=== PATIENT | female | born 1960 | race Caucasian/White ===

== ENCOUNTER 2023-11-19 20:23 | Emergency (ER) | payer MEDICARE, SELFPAY ==
[2023-11-19 20:23] VITALS: BMI 46.3
[2023-11-19 20:26] VITALS: BP 103/58
[2023-11-19 20:27] VITALS: BP 103/58
[2023-11-19 20:43] VITALS: BP 116/41
--- NOTE | 2023-11-19 20:46 | ED.GENMED ---
History of Present Illness
General
Chief Complaint: Abnormal Lab Value
Time Seen by Provider: 11/19/23 20:41
Travel History
Have you had any contact with someone who has COVID-19?: No
Do you have any symptoms of coronavirus? Fever > 100 degrees, chills, cough, shortness of breath, sore throat, loss of taste or smell, muscle aches, or headache?: No
History of Present Illness
History of Present Illness:
HPI: Patient presents from [facility] due to abnormal blood work�I reviewed the blood work that showed a RBC that was low and a hemoglobin of 8.7. She is chronically on oxygen. She missed the last several chemo sessions in [place] for a variety
of reasons.
EXAM:
GENERAL: Appears generally weak and debilitated, elevated BMI
HEENT: Moist oral mucosa
CARDIOVASCULAR: No murmurs, normal heart rate, regular rhythm, No chest wall tenderness
PULMONARY: No respiratory distress, breath sounds are clear and equal
ABDOMEN: Soft with no peritoneal signs, no tenderness
NEUROLOGIC: Excellent strength all extremities, no coordination deficits
PSYCHIATRIC: Appropriate mental status, normal insight and judgement
EXTREMITIES: Nontender, no edema, moves all extremities equally
SKIN: Appears somewhat pale
TIME OF INITIAL ENCOUNTER: 8:45 PM
NUMBER AND COMPLEXITY OF PROBLEMS ADDRESSED AT THE ENCOUNTER
� Chronic conditions affecting care: Lung cancer
� Acute Exacerbation and/or Progression of Chronic Illness: This is an acute problem
� Differential Diagnosis includes: Anemia of chronic disease, iron deficiency anemia, blood loss anemia
AMOUNT AND/OR COMPLEXITY OF DATA TO BE REVIEWED AND ANALYZED
� I performed an independent evaluation of and my interpretation is:
EKG:
CT:
X-rays:
Laboratory Studies: Hemoglobin 8.6, white count normal
Other:
� Review of other/old records: I spoke to the on-call oncologist at [facility]. The patient had a hemoglobin of 7.8 on November 13 and a hemoglobin of 7.4 on November 06.
� Clinical information was obtained by an independent historian: I called [facility] to get more information�they have no records/no old lab work. I briefly spoke to the son when he called.
� Prescriptions/Medications Considered but not given:
� Further testing considered but not performed:
RISK OF COMPLICATIONS AND/OR MORBIDITY OR MORTALITY OF PATIENT MANAGEMENT
� Social determinants of health affecting care: The oncology fellow said that she would send a message to her primary oncologist regarding the issues she has been having regarding transportation.
� Discussion with other providers: At 8:50 PM, we are contacting [facility] oncology
� Escalation of care including admission/observation vs risk of discharge considered: The patient has no complaints but was found to be anemic as an outpatient. Although she has a borderline temperature elevation here, she
reports no chills or unwell feeling. She has no particular symptoms. Son informed us that he is not happy with the care at [facility] as they could not get her to her facility. However, there is no clear indication for her to be admitted at
[facility] especially when she has no care provided here in the past and no other old records.
Phy Exam
Physical Exam
Physical Exam:
See HPI
Course
Orders/Labs/Results
Orders:
Orders
11/19/23 20:46
0.9% Sodium Chloride 500 ml [Nss] 500 ml IV BOLUS
11/19/23 20:47
Acetaminophen [Tylenol] 1,000 mg PO NOW STA
11/19/23 21:03
Type+Screen Urgent
Basic Metabolic Panel Urgent
Complete Blood Count/With Diff Urgent
Ferritin Urgent
Iron Urgent
Total Iron Binding Urgent
Abnormal Lab Results
11/19/23
21:03
RBC 2.98 L 10^6/uL
(4.20-5.40)
Hgb 8.6 L g/dL
(12.0-16.0)
Hct 26.7 L %
(37.0-47.0)
MCHC 32.2 L g/dL
(33.0-37.0)
RDW 21.0 H %
(11.5-14.5)
MPV 11.9 H fL
(7.4-10.4)
Absolute Lymphs (auto) 0.9 L 10^3/uL
(1.2-3.4)
Lymphocytes % 15.7 L %
(20.5-51.1)
Monocytes % 10.1 H %
(1.7-9.3)
11/19/23 21:03
Vital Signs
Initial and Last Documented VS:
Initial Vital Signs
BP
103/58
11/19/23 20:26
Last Documented Vital Signs
Temp Pulse Resp BP Pulse Ox
100.2 F 74 19 116/41 92
11/19/23 20:27 11/19/23 20:43 11/19/23 20:43 11/19/23 20:43 11/19/23 20:43
*Critical Care Note
Total Time (30-74mins, 75-104mins- exclusive of procedures): Not Applicable
ED Attending Note
-
Portions of this chart may have been created with voice recognition software.� Occasional wrong word or��sound alike� substitutions may have occurred due to the inherent limitations of voice recognition software.
Discharge Plan
Departure
Patient Disposition: Home (Routine Discharge)
Date of Disposition: 11/19/23
Time of Disposition: 21:14
Patient with high blood pressure during this ER visit?: Yes
Discharge Problem:
Anemia
Instructions: Anemia of inflammation (anemia of chronic disease)
Activity Restrictions/Additional Instructions:
I spoke to one of the oncology fellows at [facility]. She tells me that the hemoglobin on November 13 was 7.8. As an outpatient it was 8.7 through [facility] and today at [facility] is 8.6. The doctor that I Dr. Restrepo said they will send a message to
your own oncologist regarding the transportation issues that you have been having.
Interventions
Interventions:
*Risk Screen - Suicide Last Done: 11/19/23 20:27
*General Assessment Last Done: 11/19/23 20:27
*Neglect/Abuse Screening Last Done: 11/19/23 20:27
ED- Fall Risk Assessment Last Done: 11/19/23 20:27
*ED COVID-19 Vaccine History Last Done: 11/19/23 20:27
Discharge Date and Time
Print Language: MAORI
[2023-11-19 21:00] VITALS: BP 93/48
[2023-11-19 21:10] LABS: % Basophils 0.2 % (0-2); % Eosinophils 3.6 % (0-6); % Immature Granulocytes 0.5 % (0-0.5); % Lymphocytes 15.7 % (20.5-51.1); % Monocytes 10.1 % (1.7-9.3); % Neutrophils 69.9 % (42.2-75.2); Absolute Eosinophils 0.2 10^3/uL (0-0.7); Absolute Lymphocytes 0.9 10^3/uL (1.2-3.4); Absolute Monocytes 0.6 10^3/uL (0.1-0.6); Absolute Neutrophils 4.1 10^3/uL (1.4-6.5); Hematocrit 26.7 % (37.0-47.0); Hemoglobin 8.6 g/dL (12.0-16.0); Mean Corp Hgb Conc. 32.2 g/dL (33.0-37.0); Mean Corpuscular Hgb 28.9 pg (27.0-31.0); Mean Corpuscular Volume 89.6 fL (81.0-99.0); Mean Platelet Volume 11.9 fL (7.4-10.4); Nucleated Red Blood Cells % 0 %; Platelet Count 162 10^3/uL (130-400); Red Blood Cell Count 2.98 10^6/uL (4.20-5.40); White Blood Cell Count 5.9 10^3/uL (4.8-10.8)
[2023-11-19] MEDS: NSS 500 IV (21:20)
[2023-11-19] MEDS: TYLENOL 1000 MG PO (21:21)
[2023-11-19 21:40] LABS: Blood Urea Nitrogen 19 mg/dl (7-17); Calcium 9.4 mg/dl (8.4-10.2); Carbon Dioxide 30 mmol/L (22-30); Chloride 97 mmol/L (98-107); Estimated Creatinine Clearance 83 ml/min; Glucose 101 mg/dl (70-99); Potassium 3.8 mmol/L (3.5-5.1); Sodium 134 mmol/L (135-145); eGFR > 60.00
[2023-11-19 21:43] LABS: Iron < 20 ug/dl (37-170)
[2023-11-19 21:49] LABS: Percent Saturation 7.90513 % (20-50); Total Iron Binding Capacity 253 ug/dl (265-497)
[2023-11-19 22:41] VITALS: BP 98/59
[2023-11-19 23:00] VITALS: BP 109/62
[2023-11-20 02:40] VITALS: BP 101/65
== END 2023-11-20 02:45 | disposition home or self-care (01) ==
LOC: EMR 20:23
PROVIDERS: EMERGENCY PHYSICIAN Emergency Medicine
DX: D64.9 Anemia, unspecified (principal); R03.0 Elevated blood-pressure reading, without diagnosis of hypertension; R53.1 Weakness; C34.90 Malignant neoplasm of unspecified part of unspecified bronchus or lung; Z99.81 Dependence on supplemental oxygen
CPT/HCPCS: 99284; 96360; 80048; 82728; 83540; 83550; 85025; 86850; 86900; 86901